=== PATIENT | male | born 1995 | race Caucasian/White ===

== ENCOUNTER → 2016-05-02 | Outpatient (CLI) | payer OTHER ==
--- NOTE | 2016-05-02 18:20 | DX ---
Right rib series - 4 views Indication: Right posterior rib pain. Recent fall.. Technique: PA view and 3 oblique views of the right hemithorax. Findings: A BB, demarcating site of pain, overlies the posterior right 12th rib. No displaced rib fra ctures or bone lesion. An equivocal buckle deformity involves the neck of the right 12th rib near the junction with the spine. The lungs are well aerated and clear. No pneumothorax, atelectasis or effusion. The heart size is nor mal. Impression: 1. No displaced rib fracture. Equivocal buckle deformity of the neck of the right 12th rib. 2. Clear lungs. No pneumothorax or effusion.
== END ==
LOC: FIMAGING 17:39
DX: R07.81 Pleurodynia (principal)